=== PATIENT | male | born 2000 | race African-American/Black ===

== ENCOUNTER 2020-01-31 10:55 | Emergency (ER) | payer MEDICAID ==
[~2020-01-31] VITALS: Ht 162.6 cm; Wt 97.0 kg
[2020-01-31 11:53] VITALS: BP 128/92
== END 2020-01-31 11:56 | disposition home or self-care (01) ==
LOC: ER 10:55
DX: Z00.00 Encounter for general adult medical examination without abnormal findings (principal)
CPT/HCPCS: 99281

== ENCOUNTER 2021-04-14 14:07 | Emergency (ER) | payer MEDICAID ==
[~2021-04-14] VITALS: Ht 165.1 cm; Wt 105.0 kg
[2021-04-14] MEDS ORDERED: KETOROLAC 60MG/2ML VIAL IM ONE (14:45)
[2021-04-14 14:53] VITALS: BP 152/99
[2021-04-14] MEDS ORDERED: LIDOCAINE HCL/PF 1% 10 MG/ML 5ML VIAL IJ ONE (15:00)
[2021-04-14] MEDS ORDERED: BACITRACIN ZINC OINT UDPKT TOP ONE (15:00)
[2021-04-14] MEDS ORDERED: AMOX-424 MT (16:46)
[2021-04-14] MEDS ORDERED: IBUP-2029 MT (16:46)
== END 2021-04-14 16:55 | disposition home or self-care (01) ==
LOC: ER 14:07
DX: K08.89 Other specified disorders of teeth and supporting structures (principal); K04.7 Periapical abscess without sinus
CPT/HCPCS: 10060; 96372; 99283; J1885; J3490; Z7610

== ENCOUNTER 2021-08-16 14:23 | Emergency (ER) | payer MEDICAID ==
[~2021-08-16] VITALS: Ht 167.6 cm; Wt 109.0 kg
[~2021-08-16 14:23] MED LIST: AMOX-424 MT; IBUP-2029 MT
[2021-08-16 14:40] VITALS: BP 141/82
[2021-08-16] MEDS ORDERED: KETOROLAC 60MG/2ML VIAL IM ONE (15:45)
[2021-08-16] MEDS ORDERED: AMOX-424 MT (16:38)
== END 2021-08-16 17:11 | disposition home or self-care (01) ==
LOC: ER 14:23
DX: K04.7 Periapical abscess without sinus (principal)
CPT/HCPCS: 96372; 99283; J1885

== ENCOUNTER 2022-06-15 11:31 | Emergency (ER) | payer MEDICAID ==
[~2022-06-15] VITALS: Ht 165.1 cm; Wt 105.0 kg
[2022-06-15 11:42] VITALS: BP 154/91
[2022-06-15] MEDS ORDERED: FLUORESCEIN SODIUM 1MG/STRIP BOTHEYE ONE (13:30)
[2022-06-15] MEDS ORDERED: TETRACAINE 0.5% OPHTH DROPS 4ML BOTHEYE ONE (13:30)
[2022-06-15] MEDS ORDERED: ERYT1OIN6 LEFTEYE (13:51)
[2022-06-15] MEDS ORDERED: AMOX1TAB16 MT (13:51)
[2022-06-15] MEDS ORDERED: IBUP-2029 MT (13:51)
[2022-06-15] MEDS ORDERED: CLIN-194 MT (13:51)
== END 2022-06-15 19:22 | disposition home or self-care (01) ==
LOC: ER 11:31
DX: S05.02XA Injury of conjunctiva and corneal abrasion without foreign body, left eye, initial encounter (principal); L03.213 Periorbital cellulitis; K04.7 Periapical abscess without sinus; X58.XXXA Exposure to other specified factors, initial encounter; Y93.89 Activity, other specified; Y92.018 Other place in single-family (private) house as the place of occurrence of the external cause
CPT/HCPCS: 99283

== ENCOUNTER 2024-02-15 13:01 | Emergency (ER) | payer MEDICAID ==
[~2024-02-15] VITALS: Ht 172.7 cm; Wt 95.0 kg
[~2024-02-15 13:01] MED LIST changes: +AMOX1TAB16 MT; +CLIN-194 MT; +ERYT1OIN6 LEFTEYE
[2024-02-15 13:20] VITALS: O2SAT 98
[2024-02-15] MEDS: TETANUS, DIPHTHERIA, PERTUSSIS VAC/PF 0.5ML (>10YR OLD) IM ONE (13:30)
[2024-02-15 14:22] LABS: EOSINOPHILS % 3.4 % (0.0-5.0); HEMATOCRIT. 46.7 % (42.0-52.0); HEMOGLOBIN. 15.9 g/dL (14.0-18.0); LYMPHOCYTES % 20.1 % (20.0-50.0); MEAN CORPUSCULAR HEMOGLOBIN 32.9 pg (28.0-32.0); MEAN CORPUSCULAR VOLUME 96.9 fL (80.0-94.0); MEAN PLATELET VOLUME 8.2 fl (7.4-10.4); MONOCYTES % 9.3 % (2.0-8.0); NEUTROPHILS % 66.2 % (40.0-76.0); PLATELET 262 x1000/uL (130-400); RED BLOOD CELL COUNT 4.82 mill/uL (4.7-6.1); WHITE BLOOD COUNT 7.1 x1000/uL (4.5-11.0)
[2024-02-15 14:42] LABS: ACETAMINOPHEN < 2 ug/mL (10-30); ALANINE AMINOTRANSFERASE 66 IU/L (10-49); ALBUMIN 4.2 g/dL (3.2-4.8); ASPARTATE AMINOTRANSFERASE 34 IU/L (<34); BILIRUBIN TOTAL 0.4 mg/dL (0.1-1.0); CALCIUM 8.7 mg/dL (8.7-10.4); CARBON DIOXIDE 22 mEq/L (21-32); CHLORIDE 108 mEq/L (98-107); CREATININE 0.9 mg/dL (0.6-1.3); ETHANOL BLOOD 72 mg/dL (<10); GLUCOSE 97 mg/dL (70-105); POTASSIUM 3.3 mEq/L (3.5-5.1); PROTEIN TOTAL 6.8 g/dL (6.0-8.3); SODIUM 141 mEq/L (136-145); UREA NITROGEN BLOOD 5 mg/dL (9-23)
[2024-02-15] MEDS: ACETAMINOPHEN 325MG TABLET PO ONE (19:00)
[2024-02-15] MEDS: LORAZEPAM 1MG TABLET PO ONE (19:00)
[2024-02-16 00:09] LABS: CLARITY URINE CLEAR (CLEAR); COLOR URINE YELLOW (YELLOW); GLUCOSE URINE NEGATIVE (NEGATIVE); KETONES URINE TRACE (NEGATIVE); LEUKOCYTE ESTERASE URINE NEGATIVE (NEGATIVE); NITRITE URINE NEGATIVE (NEGATIVE); OCCULT BLOOD URINE NEGATIVE (NEGATIVE); PH URINE 6.5 (4.5-8.0); PROTEIN URINE NEGATIVE (NEGATIVE); SPECIFIC GRAVITY URINE 1.021 (1.005-1.030)
[2024-02-16 00:20] LABS: *AMPHETAMINES SCREEN URINE PRESUMPTIVE POSITIVE (NEGATIVE); *BARBITURATES SCREEN URINE NEGATIVE (NEGATIVE); *BENZODIAZEPINES SCREEN URINE NEGATIVE (NEGATIVE); *COCAINE SCREEN URINE NEGATIVE (NEGATIVE); CANNABINOID URINE SCREEN PRESUMPTIVE POSITIVE (NEGATIVE); ECSTASY MDMA SCREEN URINE NEGATIVE (NEGATIVE); METHADONE URINE SCREEN Neg (NEGATIVE); OPIATES URINE SCREEN NEGATIVE (NEGATIVE); PHENCYCLIDINE URINE SCREEN NEGATIVE (NEGATIVE)
[2024-02-16 00:28] LABS: RBC URINE NONE SEEN /hpf (0-2); SQUAMOUS EPITHELIAL CELL URINE NONE SEEN /lpf (RARE/1+); WBC URINE 0-2 /hpf (0-2)
[2024-02-16 00:29] LABS: BACTERIA URINE NONE SEEN
[2024-02-16] MEDS: POTASSIUM CHLORIDE 20MEQ TABLET SR PO SCH (00:48)
[2024-02-16] MEDS: DIPHENHYDRAMINE 25MG CAPSULE PO NR (00:48)
[2024-02-16] MEDS: DIPHENHYDRAMINE 50MG CAPSULE PO ONE (00:48)
[2024-02-16] MEDS: QUETIAPINE FUMARATE 50MG TABLET PO SCH (22:17)
[2024-02-19 12:48] VITALS: BP 144/101; PULSE 101; RESP 16; TEMP 98.8
== END 2024-02-19 13:49 | disposition home or self-care (01) ==
LOC: ER 13:01
DX: R45.1 Restlessness and agitation (principal); F10.129 Alcohol abuse with intoxication, unspecified; Z79.899 Other long term (current) drug therapy; Z20.822 Contact with and (suspected) exposure to COVID-19; Y90.3 Blood alcohol level of 60-79 mg/100 ml
CPT/HCPCS: 80053; 80305; 81003; 80307; 80329; 80320; 85025; 36415; 99285; 87426; Z7610 ×5; Q0163; G0480

== ENCOUNTER 2024-05-31 01:08 | Emergency (ER) | payer MEDICAID ==
[~2024-05-31] VITALS: Ht 167.6 cm; Wt 104.0 kg
[2024-05-31 01:15] VITALS: BP 130/76; PULSE 66; RESP 15; TEMP 98.1; O2SAT 100
[2024-05-31] MEDS: OLANZAPINE 5MG TABLET ODT PO ONE (06:52)
== END 2024-05-31 07:00 | disposition left against medical advice (07) ==
LOC: ER 01:08
DX: R44.3 Hallucinations, unspecified (principal); F12.10 Cannabis abuse, uncomplicated; F15.10 Other stimulant abuse, uncomplicated; Z20.822 Contact with and (suspected) exposure to COVID-19; Z79.899 Other long term (current) drug therapy
CPT/HCPCS: 87426; 99283